=== PATIENT | female | born 2000 | race Caucasian/White ===

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

== ENCOUNTER 2021-07-24 09:42 | Emergency (ER) | payer OTHER ==
[~2021-07-24] VITALS: Ht 162.6 cm; Wt 61.2 kg
[~2021-07-24 09:42] MED LIST changes: +OMEPRAZOLE40 MG PO; +ONDANSETRON HCL4 M2 PO
[2021-07-24 10:05] LABS: BASOPHILS 0.5 % (0.0-2.0); EOSINOPHILS 0.2 % (0.0-3.0); HEMATOCRIT 40.5 % (37.0-47.0); HEMOGLOBIN 13.4 gm/dL (12.0-15.0); LYMPHOCYTES 14.1 % (24.0-44.0); MCH 30.1 pg (26.0-34.0); MCHC 33.1 g/dL (28.0-37.0); PLATELET COUNT 202 thou/uL (150-400); POLYS 79.2 % (36.0-66.0); RBC 4.45 mil/uL (4.20-5.00); RDW 12.8 % (10.5-14.5); WBC 11.4 thou/uL (4.0-11.0)
[2021-07-24 10:12] LABS: CALCIUM 9.3 mg/dL (8.5-10.1); CREATININE 0.9 mg/dL (0.6-1.0); POTASSIUM 3.5 mmol/L (3.5-5.1)
[2021-07-24 10:18] LABS: ALBUMIN 4.3 g/dL (3.4-5.0); TOTAL BILIRUBIN 0.4 mg/dL (0.2-1.0)
[2021-07-24 11:26] LABS: URINE BILIRUBIN NEGATIVE (Negative); URINE BLOOD 3+ (Negative); URINE CLARITY CLOUDY; URINE COLOR BROWN; URINE GLUCOSE-RANDOM* NEGATIVE (Negative); URINE KETONES 1+ (Negative); URINE LEUKOCYTES-REFLEX NEGATIVE (Negative); URINE NITRITE-REFLEX NEGATIVE (Negative); URINE PROTEIN (DIPSTICK) 1+ (Negative); URINE SPECIFIC GRAVITY >= 1.030 (1.005-1.035); URINE UROBILINOGEN 0.2 E.U./dl (0.2-1.0)
[2021-07-24 11:32] LABS: BACTERIA-REFLEX 1-9 Few /HPF (None Seen); CASTS None Seen /LPF (None Seen); SQUAMOUS >10 Many /LPF (0-3); URINE RBC >20 Many /HPF (NONE SEEN); URINE WBC-REFLEX 0-5 Rare /HPF (0-5)
[2021-07-24 11:33] LABS: CALCIUM OXALATE 0-3 Few /LPF (None Seen)
[2021-07-24] MEDS ORDERED: NORCO5 PO ×2 (12:31→12:36)
[2021-07-24] MEDS ORDERED: IBUPROFEN 800800 MG PO ×2 (12:31→12:36)
[2021-07-24] MEDS ORDERED: CEPHALEXIN500 MG PO ×2 (12:31→12:36)
[2021-07-24] MEDS ORDERED: FLOMAX0.4 MG PO ×2 (12:31→12:36)
[2021-07-24 12:44] VITALS: BP 134/86
== END 2021-07-24 12:45 | disposition home or self-care (01) ==
LOC: ER 09:42
PROVIDERS: Emergency Medicine
DX: N20.0 Calculus of kidney (principal); Z20.822 Contact with and (suspected) exposure to COVID-19; R10.31 Right lower quadrant pain; R31.9 Hematuria, unspecified; R11.0 Nausea; D72.829 Elevated white blood cell count, unspecified; Z90.89 Acquired absence of other organs